=== PATIENT | male | born 1955 | race Caucasian/White ===

== ENCOUNTER → 2023-12-20 18:04 | Outpatient (REF) | payer BC, SELFPAY | LOC: MRI 3T 18:04 | PROVIDERS: ATTENDING PHYSICIAN Otolaryngology; FAMILY PHYSICIAN Internal Medicine; REFERRING PHYSICIAN Orthopaedic Surgery | DX: H91.8X9 Other specified hearing loss, unspecified ear (principal); M25.812 Other specified joint disorders, left shoulder; M25.512 Pain in left shoulder | CPT/HCPCS: 70553; 73221; A9575 ==